=== PATIENT | female | born 1995 | race Caucasian/White ===

== ENCOUNTER → 2022-08-30 07:52 | Outpatient (CLI) | payer BC, SELFPAY ==
--- NOTE | ~2022-08-30 | US_ITS ---
EXAMINATION: US OB /maternal detail DATE: 08/30/2022 09:45 INDICATION: Encounter for screening, unspecified. TECHNIQUE: Real-time ultrasound of the pelvis was performed. COMPARISON: None. FINDINGS: There is a single living fetus in variable presentation. The placenta is anterior and abuts the inte rnal cervical os. heart rate is 138 beats per minute (bpm). The cervical length is 5.1 cm on tr ansabdominal images, which is normal. The amniotic fluid volume is subjectively normal. The following biometric data were obtained: Biparietal diameter (BPD): 5.0 cm; head circumference (HC): 17.6 cm; abdominal circumference (AC): 16 .2 cm; femur length (FL): 3.2 cm. These measurements are concordant. Estimated weight is 365 g +/- 55 g, which correlates with the 55th percentile when 01/14/23 is u sed as estimated date of delivery. As single measurements, these parameters are each equal to the following estimated gestational ages: BPD: 21 weeks 0 days. HC: 20 weeks 1 days. AC: 21 weeks 2 days. FL: 19 weeks 6 days. estimated gestational age based solely on measurements from this exam is 20 weeks 4 days +/- 1 weeks 3 days. The cerebral ventricles, cerebellum, cisterna magna, nuchal fold, and visualized portions of the spin e are normal. The heart is normal. The diaphragm, stomach, kidneys, and bladder are normal. There are two umbilical arteries to yield a 3-vessel cord. The cord insertion is normal. IMPRESSION: 1. Single living fetus in variable presentation. 2. Estimated weight is 365 g +/- 55 g, which correlates with the 55th percentile when 01/14/23 is used as estimated date of delivery. 3. Normal anatomic survey. 4. Marginal placenta previa. Reviewed, dictated and finalized at location A. OR PROJECT MANAGER IMPRESSION: 1. Single living fetus in variable presentation. 2. Estimated weight is 365 g +/- 55 g, which correlates with the 55th pe rcentile when 01/14/23 is used as estimated date of delivery. 3. Normal anatomic survey. 4. Marginal placenta previa.
== END ==
PROVIDERS: PCP Nurse Practitioner Obstetrics & Gynecology; Visit Provider Obstetrics & Gynecology Gynecologic Oncology
DX: Z36.9 Encounter for antenatal screening, unspecified (principal); Z3A.20 20 weeks gestation of pregnancy
CPT/HCPCS: 76805

== ENCOUNTER → 2022-10-27 15:33 | Outpatient (CLI) | payer BC, SELFPAY ==
--- NOTE | ~2022-10-27 | US_ITS ---
EXAMINATION: US OB limited DATE: 10/27/2022 16:33 INDICATION: Low lying placenta. Estimated gestational age of 28 weeks and 5 days. TECHNIQUE: Real-time ultrasound of the pelvis was performed. COMPARISON: Ultrasound 08/30/2022 FINDINGS: There is a single fetus in breech presentation. The placenta is anterior, 3.8 cm from the cervix. Fe amelia heart rate is 141 beats per minute (bpm). The amniotic fluid volume is subjectively normal. The c ervical length is 3.0 cm on transabdominal images, which is normal. IMPRESSION: 1. Single living fetus in breech presentation. 2. Normal placenta. Reviewed, dictated and finalized at location A.
== END ==
PROVIDERS: PCP Obstetrics & Gynecology Gynecologic Oncology; Visit Provider Obstetrics & Gynecology Gynecologic Oncology
DX: O44.42 Low lying placenta NOS or without hemorrhage, second trimester (principal); O44.20 Partial placenta previa NOS or without hemorrhage, unspecified trimester
CPT/HCPCS: 76815

== ENCOUNTER 2024-08-27 09:26 | Outpatient (CLI) | payer BC, SELFPAY ==
--- NOTE | ~2024-08-27 | US_ITS ---
EXAMINATION: US OB /maternal detail DATE: 08/27/2024 10:32 INDICATION: anatomic survey. TECHNIQUE: Real-time ultrasound of the pelvis was performed. COMPARISON: None. FINDINGS: There is a single living fetus in breech presentation. The placenta is posterior and fundal, 7.5 cm from the cervix. The cervical length is 3.1 cm on transabdominal images, which is normal. heart rate is 148 beats per minute (bpm). The amniotic fluid volume is subjectively normal. The following biometric data were obtained: Biparietal diameter (BPD): 4.8 cm; head circumference (HC): 17.6 cm; abdominal circumference (AC): 15 .3 cm; femur length (FL): 3.2 cm. These measurements are concordant. Estimated weight is 342 g +/- 51 g, which correlates with the 76th percentile when 01/16/25 is u sed as estimated date of delivery. As single measurements, these parameters are each equal to the following estimated gestational ages: BPD: 20 weeks 3 days. HC: 20 weeks 1 days. AC: 20 weeks 4 days. FL: 19 weeks 6 days. estimated gestational age based solely on measurements from this exam is 20 weeks 2 days +/- 1 weeks 3 days. The cerebral ventricles, cerebellum, cisterna magna, nuchal fold, and spine are normal. The heart is normal. The diaphragm, stomach, kidneys, and bladder are normal. There are two umbilical arteries to yield a 3-vessel cord. The cord insertion is normal. IMPRESSION: 1. Single living fetus in breech presentation. 2. Estimated weight is 342 g +/- 51 g, which correlates with the 76th percentile when 01/16/25 is used as estimated date of delivery. 3. Normal anatomic survey. Reviewed, dictated and finalized at location A. RATORY ANALYST IMPRESSION: 1. Single living fetus in breech presentation. 2. Estimated weight is 342 g +/- 51 g, which correlates with the 76th pe rcentile when 01/16/25 is used as estimated date of delivery. 3. Normal anatomic survey.
== END 2024-08-27 09:27 | disposition home or self-care (01) ==
PROVIDERS: PCP Obstetrics & Gynecology; Visit Provider Obstetrics & Gynecology
DX: Z36.9 Encounter for antenatal screening, unspecified (principal); Z3A.20 20 weeks gestation of pregnancy
CPT/HCPCS: 76805